=== PATIENT | male | born 1985 | race Hispanic/Latino ===

== ENCOUNTER 2023-04-05 13:20 | Emergency (ER) | payer SELFPAY ==
[2023-04-05 13:22] VITALS: BP 145/93; PULSE 111; RESP 18; TEMP 37.7; O2SAT 100; BMI 26.7
[2023-04-05] MEDS: Ibuprofen 400 MG Tablet 800 MG PO (14:45)
[2023-04-05] MEDS: Mag Hydrox/Al Hydrox/Simeth 30 ML UDC PO (14:45)
[2023-04-05 15:05] LABS: Internal QC Validated? YES +Cl - CLEAR BKGD; Monotest Negative (Negative); Record Kit Lot#, Mono 13231163
--- NOTE | 2023-04-05 15:14 | EDS_ITS ---
HPI History of Present Illness Chief Complaint: Sore Throat Informant: patient Narrative Narrative: 37-year-old male presenting to the emergency department sore throat. History is obtained with the assistance of [place] dedicated driver provided through the hospital. Patient notes for the past 2 days has had sore throat left ear pain. Difficulty swallowing secondary to pain. He denies any cough or shortness of breath. He denies any rashes. No vomiting diarrhea. No rhinorrhea. States he has a slight right frontal headache. He denies any neck pain. He reports a negative COVID test. PFSH PFSH Medical History no medical history no medical history Allergy/AdvReac Type Severity Reaction Status Date / Time No Known Allergies Allergy Verified 04/05/23 13:24 Surgical History no surgical history no surgical history Social History Smoking Status: Never smoker ROS ROS ED Constitutional Constitutional ED: Reports chills, fever(s) and sweats; Denies weight loss Eyes Eyes: Denies change in vision or diplopia ENT ENT ED: Reports ear pain and sore throat; Denies rhinorrhea Cardiovascular Cardiovascular: Denies chest pain, orthopnea, palpitations or racing heartbeat Respiratory/Chest Respiratory/Chest: Denies cough, dyspnea, dyspnea on exertion or orthopnea Gastrointestinal Gastrointestinal: Denies abdominal pain, diarrhea, nausea or vomiting Genitourinary Genitourinary ED: Denies dysuria, hematuria or urinary frequency Musculoskeletal Musculoskeletal: Denies arthralgias or myalgias Integumentary Denies abscess or rash Neurologic Neurologic: Reports headache(s); Denies weakness Psychiatric Psychiatric: Denies anxiety, depression, suicidal ideation or suicidal thoughts Endocrine Endocrinology: Denies polydipsia, polyphagia or polyuria Allergic/Immunologic Allergic/Immunologic ED: Denies mouth swelling, tongue swelling or urticaria EXAM Physical Exam Const Vital Signs: 04/05/23 13:22 Temperature 100 F H Temperature Source Temporal Pulse Rate 111 H Respiratory Rate 18 Blood Pressure 145/93 H Blood Pressure Mean 110 Pulse Ox 100 Oxygen Delivery Method Room Air Positive well nourished and well developed General Appearance ED: well developed HEENT Reports normocephalic, head/scalp atraumatic and moist mucous membranes HEENT Narrative: There are exudates and tonsillar swelling bilaterally. There is no palatal petechiae. There is no evidence of peritonsillar or retropharyngeal abscess seen. Tympanic membranes appear normal. He is handling his secretions normally laying back at a 30 degree angle Eyes PERRL and EOMs intact bilaterally Neck supple and no JVD Neck Narrative: Few scattered anterior lymph nodes tender to palpation mobile less than 1 cm Resp normal respiratory effort and clear to auscultation bilaterally Cardio regular rate, regular rhythm and no murmurs GI normal to inspection, nondistended, normoactive bowel sounds and non-tender Palpation: soft Back/Spine no CVA tenderness and normal ROM Extremity normal to inspection General Extremety ED: Negative for edema General Extremity: Negative for edema Neuro oriented x3 and CN's II-XII intact bilaterally Sensorium / Orientation: alert Motor Exam: strength 5/5 throughout Psych mental status grossly normal Mood & Affect: Negative for depressed or tearful Skin no rashes or lesions noted and no wounds MDM MDM MDM Narrative Medical decision making narrative: Rapid strep was negative and will be sent for culture. Monoscreen is negative. Patient received a GI cocktail to help assist in swallowing medications- ibuprofen. Patient will receive a prescription for Augmentin. We will await culture. He was advised that the monotest can be false negative early in the onset of illness. Would recommend continued ibuprofen for fever and pain control Lab Data Attestation: I reviewed the patient's lab results. Labs: Laboratory Results - last 24 hr 04/05/23 14:40 Monoscreen Negative Discharge Plan Triage Chief Complaint: Sore Throat ED Provider: Chet Hernandez
== END 2023-04-05 15:39 | disposition home or self-care (01) ==
PROVIDERS: Emergency Provider Emergency Medicine; Visit Provider Emergency Medicine
DX: J02.9 Acute pharyngitis, unspecified (principal)
CPT/HCPCS: 86308; 87070; 87880